=== PATIENT | male | born 1995 | race Caucasian/White ===

== ENCOUNTER 2016-11-02 22:54 | Emergency (ER) | payer MEDICAID ==
[~2016-11-02] VITALS: Ht 175.3 cm; Wt 53.5 kg
[2016-11-02 23:06] VITALS: BP 122/73
[2016-11-03] MEDS ORDERED: ACETAMINOPHEN/CODEINE 300/30MG 1 TAB PO ONE (00:20)
[2016-11-03 00:45] VITALS: BP 122/73
== END 2016-11-03 00:45 | disposition home or self-care (01) ==
LOC: MED 22:54
DX: M79.645 Pain in left finger(s) (principal); M79.89 Other specified soft tissue disorders
CPT/HCPCS: 73140; 99284

== ENCOUNTER 2019-02-23 09:44 | Emergency (ER) | payer MEDICAID ==
[~2019-02-23] VITALS: Ht 175.3 cm; Wt 49.4 kg
[2019-02-23 10:00] VITALS: BP 124/76
--- NOTE | 2019-02-23 10:08 | NUR ---
BIB FRIEND. AAO X4 C/O VOMITING, DIARRHEA, CHILLS & CHEST "TIGHTNESS", COUGH X 4 DAYS. PT REPORTS RECENT TRAVEL TO [place]. LBM TODAY, DIARRHEA X1. PT STATES HE LOST 10LBS IN THE LAST 4 DAYS. PT STATES HE IS UNABLE TO COUGH UP PHLEGM CAUSING CHEST TIGHTNESS. CLEAR EQUAL MERCEDES LUNGS UPON AUSCULTATION. PT PLACED ON FULL SAMPLE TESTER. ER TO EVALUATE PT.
--- NOTE | 2019-02-23 10:08 | NUR ---
PATIENT AMBULATED TO ER BED 5
--- NOTE | 2019-02-23 11:00 | NUR ---
DR AUGUSTINE AT BEDSIDE FOR PT EVALUATION
--- NOTE | 2019-02-23 11:09 | NUR ---
PT AAO X4, FULL CLEAR SPEECH. CONVERSATING APPROPRIATELY. EVEN AND UNLABORED BREATHING. NO SIGNS AND SYMPTOMS OF DISTRESS NOTED.
[2019-02-23] MEDS ORDERED: NACL 0.9% 1,000 ML IV SCH (11:19)
[2019-02-23] MEDS ORDERED: ONDANSETRON 4 MG/2 ML VIAL IVP ONE (11:20)
--- NOTE | 2019-02-23 12:10 | NUR ---
IV INITIATED TO RAC, 18G INTACT AND PATENT. PT TOLERATED WELL. BLOOD DRAWN ORDERED, GIVEN TO WEAVER DOBBY LOOM.
[2019-02-23 12:25] LABS: BASOPHILS % (AUTO) 0.2 % (0.0-2.0); EOSINOPHILS # (AUTO) 0.1 K/uL (0-0.4); EOSINOPHILS % (AUTO) 0.5 % (0.0-4.0); HEMATOCRIT 43.5 % (36-52); HEMOGLOBIN 15.1 g/dL (12.0-18.0); LYMPHOCYTES % (AUTO) 8.2 % (20.5-51.1); MEAN CORPUSCULAR HEMOGLOBIN 28 pg (27-31); MEAN CORPUSCULAR HGB CONC 35 g/dL (33-37); MEAN CORPUSCULAR VOLUME 81.8 fL (80-94); MONOCYTES # (AUTO) 0.3 K/uL (0.8-1.0); MONOCYTES % (AUTO) 2.6 % (1.7-9.3); NEUTROPHILS # (AUTO) 10.9 K/uL (1.8-7.7); NEUTROPHILS % (AUTO) 88.5 % (42.2-75.2); PLATELET COUNT (AUTO) 350 K/uL (140-450); RED BLOOD CELL COUNT(AUTO) 5.32 MIL/uL (4.20-6.10); RED CELL DISTRIBUTION WIDTH 13.4 % (11.6-13.7); WHITE BLOOD COUNT (AUTO) 12.3 K/uL (4.8-10.8)
[2019-02-23 12:28] LABS: APPEARANCE,URINE CLEAR (CLEAR); BILIRUBIN,URINE 2+ (NEGATIVE); BLOOD, URINE NEGATIVE (NEGATIVE); LEUKOCYTE ESTERASE ,URINE NEGATIVE (NEGATIVE); NITRITE, URINE NEGATIVE (NEGATIVE); UGLUCOSE NEGATIVE (NEGATIVE)
[2019-02-23 12:32] LABS: COLOR,URINE ORANGE (YELLOW)
[2019-02-23 12:32] LABS: ANION GAP 17.6 (8-16); CARBON DIOXIDE 24.4 mmol/L (21-32); CREATININE 0.9 mg/dL (0.7-1.3)
[2019-02-23 12:42] LABS: ALBUMIN 3.4 g/dL (3.4-5.0); TOTAL BILIRUBIN 0.9 mg/dL (0.0-1.0)
--- NOTE | 2019-02-23 13:00 | NUR ---
pt aaox4, full clear speech. even and unlabored breathing. no signs and symptoms of distress noted.
[2019-02-23 13:55] VITALS: BP 116/66
--- NOTE | 2019-02-23 13:55 | NUR ---
Patient discharged with v/s stable. Written and verbal after care instructions given and explained. Patient verbalized understanding. Ambulatory with steady gait. All questions addressed prior to discharge. Advised to follow up with PMD.
== END 2019-02-23 13:55 | disposition home or self-care (01) ==
LOC: MED 09:44
DX: K52.9 Noninfective gastroenteritis and colitis, unspecified (principal); F12.90 Cannabis use, unspecified, uncomplicated; F17.200 Nicotine dependence, unspecified, uncomplicated; Z71.6 Tobacco abuse counseling; Z71.51 Drug abuse counseling and surveillance of drug abuser; Z88.8 Allergy status to other drugs, medicaments and biological substances
CPT/HCPCS: 36415; 80053; 81003; 83690; 85025; 96361; 96374; 99283; J2405; J7030

== ENCOUNTER 2020-04-13 11:10 | Emergency (ER) | payer MEDICAID ==
[~2020-04-13] VITALS: Ht 175.3 cm; Wt 56.7 kg
[2020-04-13 11:30] VITALS: BP 117/69
--- NOTE | 2020-04-13 11:39 | NUR ---
PT AMB TO BED 4
--- NOTE | 2020-04-13 12:00 | NUR ---
24 YEAR OLD MALE COMPLAINS OF LEFT SIDED ABDOMINAL PAIN X 5 DAYS. PT STATES PAIN HAS BEEN ON/OFF, DENIES NAUSEA/VOMITTING/DIARRHEA. PT AOX4, BREATHING EVEN AND UNLABORED, SKIN WARM AND DRY. BED IN LOWEST POSITION, LOCKED, BED RAIL UPX1. PMH - DENIES ALLERGIES - ARIPIPRAZOLE
--- NOTE | 2020-04-13 13:00 | NUR ---
PT AOX4, BREATHING EVEN AND UNLABROED
--- NOTE | 2020-04-13 14:15 | NUR ---
Patient discharged with v/s stable. Written and verbal after care instructions about kidney stones and constipation given and explained. Patient alert, oriented and verbalized understanding of instructions. Ambulatory with steady gait. All questions addressed prior to discharge. ID band removed. Patient advised to follow up with PMD. Rx of tramadol, mineral oil, and motrin given. Patient educated on indication of medication including possible reaction and side effects. Opportunity to ask questions provided and answered.
[2020-04-13 14:19] VITALS: BP 117/69
== END 2020-04-13 14:15 | disposition home or self-care (01) ==
LOC: MED 11:10
DX: N20.0 Calculus of kidney (principal); K59.00 Constipation, unspecified; F17.210 Nicotine dependence, cigarettes, uncomplicated; Z88.8 Allergy status to other drugs, medicaments and biological substances
CPT/HCPCS: 74022; 99284

== ENCOUNTER 2021-01-31 11:19 | Emergency (ER) | payer MEDICAID ==
[~2021-01-31] VITALS: Ht 175.3 cm; Wt 54.4 kg
[2021-01-31 11:30] VITALS: BP 117/78
--- NOTE | 2021-01-31 13:14 | NUR ---
PT CALLED AT LOBBY AT WAS NOT PRESENT AND WAS NOT OUTSIDE OF WAITING ROOM
--- NOTE | 2021-01-31 13:24 | NUR ---
PT CALLED IN LOBBY SECOND TIME, NO ANSWER. MADE AWARE.
--- NOTE | 2021-01-31 13:34 | NUR ---
PT CALLED IN LOBBY THIRD TIME, NO ANSWER. MADE AWARE.
--- NOTE | 2021-01-31 15:11 | NUR ---
PT BACK IN LOBBY, STATES HE WAS SITTING IN HIS CAR, MADE AWARE.
--- NOTE | 2021-01-31 16:13 | NUR ---
PT CALLED AT LOBBY AT WAS NOT PRESENT AND WAS NOT OUTSIDE OF WAITING ROOM WHEN MD CALLED.
--- NOTE | 2021-01-31 16:14 | NUR ---
SPOKE WITH PT OVER THE PHONE, STATED HE WOULD COME BACK TOMMOROW MORNING BECAUSE HE DID NOT WANT TO WAIT.
== END 2021-01-31 16:13 | disposition left against medical advice (07) ==
LOC: MED 11:19
DX: L02.01 Cutaneous abscess of face (principal)
CPT/HCPCS: 99281

== ENCOUNTER 2022-04-17 18:22 | Emergency (ER) | payer MEDICAID ==
[~2022-04-17] VITALS: Ht 175.3 cm; Wt 53.1 kg
[2022-04-17 18:34] VITALS: BP 138/87
[2022-04-17] MEDS ORDERED: FLUORESCEIN OPTH STRIP 1 MG OP ONE (18:40)
[2022-04-17] MEDS ORDERED: TETRACAINE HCL/PF 0.5% OPTH 4 ML BTL OP ONE (18:50)
--- NOTE | 2022-04-17 18:50 | NUR ---
MONA CASTORENA IN TRIAGE FOR EVAL
--- NOTE | 2022-04-17 18:52 | NUR ---
C/O LEFT EYE PAIN X1 DAY, PER PT HE IS A [employer] CL[employer] AND 'SOMETHING GOT INTO HIS EYE", C/O BLURRY VISION ALLERGY: ARIPIPRAZOLE PMH: [id number]
[2022-04-17] MEDS ORDERED: TOMOMETER 1 DEV DEV MC ONE (18:55)
[2022-04-17] MEDS ORDERED: CIPR2.5D LEFT EYE (19:07)
--- NOTE | 2022-04-17 19:26 | NUR ---
Patient discharged with v/s stable. Written and verbal after care instructions about bacterial conjunctivitis given and explained. Patient alert, oriented and verbalized understanding of instructions. Ambulatory with steady gait. All questions addressed prior to discharge. ID band removed. Patient advised to follow up with PMD. Rx of ciprofloxacin hcl optic given. Patient educated on indication of medication including possible reaction and side effects. Opportunity to ask questions provided and answered.
== END 2022-04-17 19:26 | disposition home or self-care (01) ==
LOC: MED 18:22
DX: H57.89 Other specified disorders of eye and adnexa (principal); Z88.8 Allergy status to other drugs, medicaments and biological substances
CPT/HCPCS: 99283